=== PATIENT | female | born 2000 | race Caucasian/White ===

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

== ENCOUNTER 2021-08-04 20:57 | Emergency (ER) | payer OTHER ==
[~2021-08-04] VITALS: Ht 167.6 cm; Wt 114.8 kg
[2021-08-04 21:02] VITALS: BP 138/88
[2021-08-05 01:00] LABS: BILIRUBIN Negative (Negative); BLOOD 3+ (Negative); CLARITY Cloudy (Clear); COLOR Yellow (Yellow); GLUCOSE Negative (Negative); KETONE Negative (Negative); LEUKO ESTERASE 2+ (Negative); NITRITE Negative (Negative); PH 5.5 (4.5-8.0); SPECIFIC GRAVITY 1.025 (1.001-1.030)
[2021-08-05 01:01] LABS: BACTERIA 2+; EPITHELIAL CELLS 21-30; RBC 41-50 rbc/hpf (0-2); WBC 31-40 wbc/hpf (0-5)
[2021-08-05] MEDS ORDERED: CYCLOBENZAPRINE10 MG PO (02:12)
== END 2021-08-05 02:15 | disposition home or self-care (01) ==
LOC: ED 20:57
PROVIDERS: Emergency Medicine
DX: S39.012A Strain of muscle, fascia and tendon of lower back, initial encounter (principal); S20.229A Contusion of unspecified back wall of thorax, initial encounter; N39.0 Urinary tract infection, site not specified; V80.010A Animal-rider injured by fall from or being thrown from horse in noncollision accident, initial encounter; Y93.89 Activity, other specified; Y92.89 Other specified places as the place of occurrence of the external cause; Y99.8 Other external cause status

== ENCOUNTER → 2022-06-22 | Outpatient (CLI) | payer OTHER ==
[~2022-06-22] MED LIST changes: +CYCLOBENZAPRINE10 MG PO
== END | disposition home or self-care (01) ==
LOC: US 11:00
PROVIDERS: ATTEND Student in an Organized Health Care Education/Training Program
DX: Z34.91 Encounter for supervision of normal pregnancy, unspecified, first trimester (principal); Z3A.01 Less than 8 weeks gestation of pregnancy

== ENCOUNTER 2023-10-12 22:49 | Emergency (ER) | payer OTHER ==
[~2023-10-12] VITALS: Ht 167.6 cm; Wt 95.3 kg
[2023-10-12 23:58] VITALS: BP 123/78
[2023-10-13] MEDS ORDERED: EPINEPHrine Hydrochloride 1 MG/ML AMP IM ONE (00:20)
[2023-10-13] MEDS ORDERED: LORATADINE 10 MG TAB PO ONE (02:40)
[2023-10-13] MEDS ORDERED: GOOD NEIGHBOR P10 M1 PO (02:40)
== END 2023-10-13 02:58 | disposition home or self-care (01) ==
LOC: ED 22:49
DX: B34.9 Viral infection, unspecified (principal); Z20.822 Contact with and (suspected) exposure to COVID-19; R42 Dizziness and giddiness

== ENCOUNTER → 2024-01-14 | Outpatient (CLI) | payer OTHER ==
[~2024-01-14] MED LIST changes: +GOOD NEIGHBOR P10 M1 PO
== END | disposition home or self-care (01) ==
LOC: RAD 10:11
PROVIDERS: ATTEND Family Medicine
DX: M48.07 Spinal stenosis, lumbosacral region (principal); M47.27 Other spondylosis with radiculopathy, lumbosacral region

== ENCOUNTER → 2024-04-05 | Outpatient (CLI) | payer OTHER | END | disposition home or self-care (01) | LOC: MRI 14:56 | PROVIDERS: ATTEND Family Medicine | DX: M51.16 Intervertebral disc disorders with radiculopathy, lumbar region (principal); M47.817 Spondylosis without myelopathy or radiculopathy, lumbosacral region; M48.07 Spinal stenosis, lumbosacral region ==